=== PATIENT | male | born 1940 | race Caucasian/White ===

== ENCOUNTER 2017-01-03 06:37 | Day surgery (SDC) | payer OTHER, BC ==
[2016-12-30 17:18] VITALS: BMI 28.5
[2017-01-03] MEDS ORDERED: LEVOFLOXACIN 500 MG PREMIX BAG IVPB ONE (08:18)
--- NOTE | 2017-01-03 09:07 | OP ---
Operative Note - Note: Operative Date: 01/03/17 Pre-Operative Diagnosis: left renal stone Operation: left eswl Findings: 7 mm left lower pole stone Post-Operative Diagnosis: Same as Pre-op Surgeon: Zackery Ferguson Anesthesia: Fractional Operative Report Dictated: Yes
--- NOTE | 2017-01-03 09:34 | OP ---
DATE OF OPERATION: 01/03/2017 PREOPERATIVE DIAGNOSIS: Left renal stone. POSTOPERATIVE DIAGNOSIS: Left renal stone. PROCEDURE: Left extracorporeal shock-wave lithotripsy. ATTENDING: uKsh Jane MD ANESTHESIA: Fractional. DESCRIPTION OF PROCEDURE: The patient was brought in the operating room and placed in supine position on the operating room table. Ultrasonography and fluoroscopy were performed. A 7-mm left lower pole stone was identified. Anesthesia and preoperative antibiotics were then administered. Shock-wave lithotripsy was started at this point. Then 2500 impulses at 18 J of power were administered to the stone with excellent fragmentation of the stone. The patient tolerated the procedure very well. DISPOSITION: To the recovery room. KUSH JANE M.D. [id number]
[2017-01-03] MEDS ORDERED: ONDANSETRON 4 MG/2 ML VIAL IVPUSH PRN (10:29)
[2017-01-03] MEDS ORDERED: oxyCODONE HCL 5 MG TABLET PO PRN ×2 (10:29)
[2017-01-03] MEDS ORDERED: LACTATED RINGERS SOLUTION 1,000 ML IV SCH (10:30)
[2017-01-03 10:38] VITALS: PULSE 66; TEMP 97.1
[2017-01-03 11:08] VITALS: BP 132/76
== END 2017-01-03 11:00 | disposition home or self-care (01) ==
LOC: JASU-SURG 06:37
PROVIDERS: ATTEND Urology
PROC: 0TF4XZZ Fragmentation in Left Kidney Pelvis, External Approach (ICD-10-PCS; principal; 2017-01-03 08:00)
DX: N20.0 Calculus of kidney (principal)
CPT/HCPCS: 94760

== ENCOUNTER 2018-01-02 07:17 | Day surgery (SDC) | payer OTHER, BC ==
[2018-01-02 08:08] VITALS: BMI 29.8
[2018-01-02] MEDS ORDERED: PROPOFOL 20 ML ONE (12:45)
[2018-01-02] MEDS ORDERED: KETOROLAC TROMETHAMINE 30 MG/1 ML VIAL ONE (13:02)
[2018-01-02 13:38] VITALS: TEMP 97.9
--- NOTE | 2018-01-02 13:50 | OP ---
Operative Note - Note: Operative Date: 01/02/18 Pre-Operative Diagnosis: Left renal stone Operation: Left ESWL Findings: 5 mm lower pole Left renal stone Post-Operative Diagnosis: Same as Pre-op Surgeon: Zackery Ferguson Anesthesia: Fractional Blood Volume Replaced (mls): 0 Operative Report Dictated: Yes
[2018-01-02 14:26] VITALS: BP 141/91; PULSE 62
--- NOTE | 2018-01-03 07:55 | OP ---
DATE OF OPERATION: 01/02/2018 PREOPERATIVE DIAGNOSIS: Left renal stone. POSTOPERATIVE DIAGNOSIS: Left renal stone. PROCEDURE: Left extracorporeal shock wave lithotripsy. ATTENDING: Zackery Reynoso MD ANESTHESIA: Fractional. OPERATION: The patient was brought in the operating room, placed in supine position on the operating room table. Ultrasonography and fluoroscopy were performed. A 5-mm left lower pole stone was identified. At this point, shock wave lithotripsy was performed, 2500 impulses at 17 joules of power were administered to the stone with excellent fragmentation of the stone under real time ultrasonography and fluoroscopy. There were no complications noted. The patient tolerated the procedure very well. Savanna [id number]
== END 2018-01-02 14:15 | disposition home or self-care (01) ==
LOC: JASU-SURG 07:17
PROVIDERS: ATTEND Urology
PROC: 0TF4XZZ Fragmentation in Left Kidney Pelvis, External Approach (ICD-10-PCS; principal; 2018-01-02 11:45)
DX: N20.0 Calculus of kidney (principal)

== ENCOUNTER 2020-08-24 08:54 | Observation (INO) | payer OTHER, BC ==
[2020-08-24 09:54] LABS: BASO % 2.7 % (0-2.0); EOS % 8.3 % (0-4.5); HEMOGLOBIN 13.5 GM/dl (11.7-16.9); LYMPH % 19.5 % (8-40); MCH 28.9 pg (25.7-33.7); MCHC 32.9 g/dl (32.0-35.9); MEAN CELL VOLUME 87.6 fl (80-96); MEAN PLT VOLUME 8.8 fl (7.5-11.1); MONO % 11.7 % (3.8-10.2); NEUT % 57.8 % (42.8-82.8); PLATELET COUNT 205 10^3/uL (134-434); RBC 4.68 M/mm3 (4.00-5.60); RDW 13.2 % (11.9-15.9); WHITE BLOOD COUNT 6.4 K/mm3 (4.0-10.8)
[2020-08-24 10:06] LABS: ALBUMIN 3.6 g/dl (3.4-5.0); BILIRUBIN,TOTAL 0.9 mg/dl (0.2-1); CALCIUM 9.1 mg/dl (8.5-10); CREATININE 0.9 mg/dl (0.55-1.3); TOT PROT 6.3 g/dl (6.4-8.2)
[2020-08-24 11:18] LABS: ACTIVATED PTT 29.6 SECONDS (25.2-36.5)
[2020-08-24 11:23] LABS: INR 1.06 (0.82-1.09); PROTHROMBIN TIME (PATIENT) 11.8 SEC (10.2-13.0)
[2020-08-24] MEDS ORDERED: traMADol HCL 50 MG TABLET PO PRN (13:34)
[2020-08-24 14:41] VITALS: BMI 31.6
[2020-08-24] MEDS: ENOXAPARIN NA (PORCINE) 40 MG/0.4 ML DISP.SYRIN SQ SCH (14:47)
[2020-08-24] MEDS ORDERED: LIDOCAINE HCL 2% JELLY (30 ML/TUBE) TP PRN (14:50)
[2020-08-24] MEDS: TAMSULOSIN HCL 0.4 MG CAP PO SCH (17:41)
[2020-08-24] MEDS: POLYETHYLENE GLYCOL (HEALTHYLAX) 3350 17 GM PACKET PO SCH (19:48)
[2020-08-24] MEDS ORDERED: MELATONIN 1 MG TABLET PO PRN (23:04)
[2020-08-25 08:14] LABS: BILIRUBIN,TOTAL 0.7 mg/dl (0.2-1); CALCIUM 8.5 mg/dl (8.5-10); CREATININE 0.9 mg/dl (0.55-1.3); MAGNESIUM 1.8 mg/dL (1.8-2.4); TOT PROT 5.4 g/dl (6.4-8.2)
[2020-08-25 08:47] VITALS: BP 115/76; PULSE 71; TEMP 98.6
[2020-08-25] MEDS: ENOXAPARIN NA (PORCINE) 40 MG/0.4 ML DISP.SYRIN SQ SCH (09:22)
[2020-08-25] MEDS: POLYETHYLENE GLYCOL (HEALTHYLAX) 3350 17 GM PACKET PO SCH ×2 (09:23→11:08)
[2020-08-25] MEDS: TAMSULOSIN HCL 0.4 MG CAP PO SCH (09:23)
[2020-08-25] MEDS ORDERED: ATORVASTATIN CA 10 MG TABLET (FP) PO SCH (10:00)
[2020-08-25] MEDS ORDERED: ASPIRIN COATED 81 MG TABLET.EC PO SCH (10:00)
[2020-08-25] MEDS ORDERED: LISINOPRIL 5 MG TABLET PO SCH (10:00)
[2020-08-25] MEDS ORDERED: MULTIVITAMINS (DAILY MVI) TABLET (FP) PO SCH (10:00)
== END 2020-08-25 13:45 | disposition home or self-care (01) ==
LOC: FER 08:54 → INTOOBSV 11:24 → FM/S 11:24
PROVIDERS: ADMIT Internal Medicine; ATTEND Nurse Practitioner Acute Care
PROC: 3E013GC Introduction of Other Therapeutic Substance into Subcutaneous Tissue, Percutaneous Approach (ICD-10-PCS; principal; 2020-08-24)
DX: I63.9 Cerebral infarction, unspecified (principal); M62.81 Muscle weakness (generalized); R26.89 Other abnormalities of gait and mobility; M48.061 Spinal stenosis, lumbar region without neurogenic claudication; I10 Essential (primary) hypertension; E78.5 Hyperlipidemia, unspecified; N40.0 Benign prostatic hyperplasia without lower urinary tract symptoms; K62.89 Other specified diseases of anus and rectum; Z85.46 Personal history of malignant neoplasm of prostate; M17.12 Unilateral primary osteoarthritis, left knee; R73.9 Hyperglycemia, unspecified; Z92.3 Personal history of irradiation
CPT/HCPCS: 36415; 70450-TC; 70551-TC; 71046-TC-FY; 72131-TC; 80048; 80053; 81003; 82306; 82550; 82607; 83036; 83090; 83735; 84484; 85025; 85610; 85730; 86140; 93005; 96372; 97116-GP; 97161-GP; 99285-25; C9803; G0378; U0003; U0005

== ENCOUNTER 2023-05-04 15:58 | Inpatient (IN) | payer OTHER, BC ==
[2023-05-04 18:14] LABS: HEMATOCRIT 41.1 % (35.4-49); HEMOGLOBIN 13.7 G/dL (11.7-16.9); MCH 28.7 pg (25.7-33.7); MCHC 33.4 g/dl (32.0-35.9); MEAN CELL VOLUME 85.9 fl (80-96); MEAN PLT VOLUME 7.8 fl (7.5-11.1); PLATELET COUNT 228.2 10^3/uL (134-434); RBC 4.78 10^6/uL (4.00-5.60); RDW 15.4 % (11.9-15.9); WHITE BLOOD COUNT 8.1 10^3/uL (4.0-10.8)
[2023-05-04 18:18] LABS: PLATELET ESTIMATE ADEQUATE
[2023-05-04 18:31] LABS: ALBUMIN 4.2 g/dl (3.4-5.0); BILIRUBIN,TOTAL 0.8 mg/dl (0.2-1); CALCIUM 9.5 mg/dl (8.5-10.1); CREATININE 0.9 mg/dl (0.6-1.3); PHOSPHOROUS 3.6 (2.5-4.9); POTASSIUM 4.4 mmol/L (3.5-5.1); TOT PROT 6.4 g/dl (6.4-8.2)
[2023-05-04] MEDS ORDERED: CEFTRIAXONE 1 GM in DEXTROSE 5%-WATER 100 ML IVPB ONE (21:30)
[2023-05-04] MEDS ORDERED: DOCUSATE SODIUM 100 MG CAPSULE (FP) PO PRN (21:43)
[2023-05-04] MEDS ORDERED: ACETAMINOPHEN 325 MG TABLET (FP) PO PRN (21:43)
[2023-05-04] MEDS: ATORVASTATIN CA 20 MG TABLET (FP) PO SCH (23:00)
[2023-05-04] MEDS: INSULIN ASPART SLIDING SCALE (NOVOLOG) 1 VIAL SQ SCH (23:18)
[2023-05-05 05:57] VITALS: BMI 25.4
[2023-05-05] MEDS ORDERED: traMADol HCL 50 MG TABLET PO PRN ×2 (07:34→07:37)
[2023-05-05 08:50] LABS: CALCIUM 8.8 mg/dl (8.5-10.1); CREATININE 0.9 mg/dl (0.6-1.3); POTASSIUM 4.1 mmol/L (3.5-5.1)
[2023-05-05] MEDS: TAMSULOSIN HCL 0.4 MG CAP PO SCH (09:24)
[2023-05-05] MEDS: ENOXAPARIN NA (PORCINE) 100 MG/1 ML DISP.SYRIN SQ SCH (09:25)
[2023-05-05] MEDS: LISINOPRIL 5 MG TABLET PO SCH (09:25)
[2023-05-05] MEDS: ESCITALOPRAM OXALATE 10 MG TABLET PO SCH (09:25)
[2023-05-05] MEDS: MULTIVITAMINS (DAILY MVI) TABLET (FP) PO SCH (09:25)
[2023-05-05] MEDS: ASPIRIN COATED 81 MG TABLET.EC PO SCH (09:25)
[2023-05-05] MEDS: PANTOPRAZOLE 20 MG TABLET PO SCH (09:25)
[2023-05-05] MEDS ORDERED: PANTOPRAZOLE SOD 40 MG SUSPENSION PACKET PO SCH (10:00)
[2023-05-05 11:13] LABS: BASO % 0.6 % (0-2.0); EOS % 4.6 % (0-4.5); HEMOGLOBIN 12.6 GM/dL (11.7-16.9); LYMPH % 24.7 % (8-40); MCH 27.2 pg (25.7-33.7); MCHC 32.3 g/dl (32.0-35.9); MEAN CELL VOLUME 84.2 fl (80-96); MEAN PLT VOLUME 8.4 fl (7.5-11.1); MONO % 9.6 % (3.8-10.2); NEUT % 60.5 % (42.8-82.8); PLATELET COUNT 241 10^3/uL (134-434); RBC 4.63 M/mm3 (4.00-5.60); RDW 14.7 % (11.9-15.9); WHITE BLOOD COUNT 7.8 K/mm3 (4.0-10.0)
[2023-05-05] MEDS: ACETAMINOPHEN 325 MG TABLET (FP) PO PRN (22:59)
[2023-05-05] MEDS: CEFTRIAXONE 1 GM in DEXTROSE 5%-WATER - 50 ML IVPB SCH (23:00)
[2023-05-06 08:05] LABS: HEMATOCRIT 36.8 % (35.4-49); HEMOGLOBIN 12.1 G/dL (11.7-16.9); MCH 28.3 pg (25.7-33.7); MEAN CELL VOLUME 85.7 fl (80-96); MEAN PLT VOLUME 8.7 fl (7.5-11.1); PLATELET COUNT 209.2 10^3/uL (134-434); RBC 4.29 10^6/uL (4.00-5.60); RDW 15.5 % (11.9-15.9)
[2023-05-06 08:16] LABS: INR 1.17 (0.83-1.09); PROTHROMBIN TIME (PATIENT) 13.5 SEC (9.7-13.0)
[2023-05-06 08:46] LABS: CALCIUM 8.8 mg/dl (8.5-10.1); CREATININE 0.9 mg/dl (0.6-1.3); PHOSPHOROUS 3.5 (2.5-4.9); POTASSIUM 4.1 mmol/L (3.5-5.1)
[2023-05-07] MEDS ORDERED: BACITRACIN ZINC 15 GM TUBE TOPICAL OINTMENT TP SCH (11:15)
[2023-05-07] MEDS: BACITRACIN ZINC 15 GM TUBE TOPICAL OINTMENT TP SCH (18:02)
[2023-05-08 10:42] LABS: HEMATOCRIT 36.8 % (35.4-49); HEMOGLOBIN 12.5 G/dL (11.7-16.9); MCH 29.1 pg (25.7-33.7); MCHC 33.8 g/dl (32.0-35.9); MEAN CELL VOLUME 85.9 fl (80-96); PLATELET COUNT 188.1 10^3/uL (134-434); RBC 4.28 10^6/uL (4.00-5.60); RDW 15.3 % (11.9-15.9); WHITE BLOOD COUNT 5.8 10^3/uL (4.0-10.8)
[2023-05-08 11:15] LABS: CALCIUM 8.7 mg/dl (8.5-10.1); CREATININE 0.9 mg/dl (0.6-1.3); POTASSIUM 3.9 mmol/L (3.5-5.1)
[2023-05-09 10:30] VITALS: BP 112/66; PULSE 60; RESP 16; TEMP 98.4
== END 2023-05-09 13:43 | DRG 300 ==
LOC: FER 15:58 → FM/S 19:52 → OBSVTOIN 05-05 07:26
PROVIDERS: ADMIT Internal Medicine; ATTEND Nurse Practitioner Family
DX: I82.409 Acute embolism and thrombosis of unspecified deep veins of unspecified lower extremity (principal); N39.0 Urinary tract infection, site not specified; E11.9 Type 2 diabetes mellitus without complications; I10 Essential (primary) hypertension; R62.7 Adult failure to thrive; I44.0 Atrioventricular block, first degree; E78.5 Hyperlipidemia, unspecified; G93.9 Disorder of brain, unspecified
CPT/HCPCS: 0241U-QW; 36415; 70450-TC; 71045-TC-FY; 72125-TC; 80048; 80053; 81003; 81015; 82962; 83735; 84100; 84153; 84439; 84443; 85025; 85027; 85610; 87086; 87186; 93005; 93970-TC; 97116-GP; 97162-GP; 99285-25; G0378